=== PATIENT | female | born 1955 | race Caucasian/White ===

== ENCOUNTER 2021-10-25 13:06 | Outpatient (REF) | payer MEDICARE, SELFPAY ==
--- NOTE | 2021-10-25 13:00 | EEG_ITS ---
The waking background activity consists of a moderate voltage 9 to 10 Hertz posterior alpha frequency, intermixed with low voltage fast frequencies anteriorly. Drowsiness is characterized by diffuse theta slowing. Symmetrical frontal central sleep spindles, vertex sharp waves and K complexes appear. Delta sleep is noted at times. Arousals are frequent and unremarkable. The patient remains asymptomatic. No focal, lateralizing, or paroxysmal discharges was seen. IMPRESSION: This 24-hour ambulatory EEG is within normal limits. MD HARDIK Thurston/[facility] / [phone]
== END 2021-10-25 13:07 | disposition home or self-care (01) ==
LOC: HO.NEURO 13:06
PROVIDERS: PCP Internal Medicine; Visit Provider Psychiatry & Neurology Neurology
DX: G40.909 Epilepsy, unspecified, not intractable, without status epilepticus (principal)
CPT/HCPCS: 95708; 95957

== ENCOUNTER 2021-12-12 12:57 | Outpatient (REF) | payer MEDICARE, SELFPAY ==
--- NOTE | ~2021-12-12 | CT_ITS ---
EXAMINATION: CT HEAD WITHOUT CONTRAST CLINICAL INFORMATION: Seizures. COMPARISON: None TECHNIQUE: Contiguous axial imaging was performed from the skull base to vertex without intravenous administration of contrast. This CT examination was performed using dose optimization techniques as appropriate, variously including the following: *Automated exposure control *Adjustment of mA and/or kV according to patient size (this includes techniques or standardized protocols for targeted exams where dose is matched to indication/reason for exam; i.e. extremities or head) *Use of iterative reconstruction technique DLP: 864 mGy-cm FINDINGS: There is no evidence of acute intracranial hemorrhage or territorial infarction. No abnormal mass effect or midline shift is seen. Lange to white matter differentiation is well preserved. No extra-axial fluid collections are identified. The lateral ventricles are slightly asymmetrical but mildly prominent. The cortical sulci are unremarkable. The osseous structures and soft tissues are normal. There is mild mucoperiosteal thickening in the right inferior mastoid sinus. The left mastoid sinus and rest of the paranasal sinuses are well aerated. CT/CT head/brain wo con IMPRESSION: No acute intracranial process seen. Mild asymmetric prominent right lateral ventricle.
== END 2021-12-12 12:58 | disposition home or self-care (01) ==
LOC: HO.CT 12:57
PROVIDERS: PCP Internal Medicine; Visit Provider Psychiatry & Neurology Neurology
DX: G40.909 Epilepsy, unspecified, not intractable, without status epilepticus (principal)
CPT/HCPCS: 70450

== ENCOUNTER 2022-06-27 09:00 | Outpatient (REF) | payer MEDICARE, SELFPAY ==
[2022-06-27 10:48] LABS: MANUAL DIFF FLAG NO
[2022-06-27 10:53] LABS: Basophils Absolute Auto 0.1 X10*3/uL (0.0-0.2); Eosinophils Absolute Auto 0.2 X10*3/uL (0.0-0.4); Eosinophils Percent Auto 2.9 % (0-4); Hematocrit 39.2 % (37.0-47.0); Hemoglobin 12.9 g/dl (12.0-16.0); Imm Gran Abs Auto 0.02 X10*3/uL (0.00-0.03); Imm Gran Pct Auto 0.3 % (0.0-0.4); Lymphocytes Absolute Auto 2.5 X10*3/uL (1.2-4.9); Lymphocytes Percent Auto 34.2 % (20-40); Mean Corpuscular HGB Conc 32.9 g/dl (31.0-35.0); Mean Corpuscular Hemoglobin 31.5 pg (27.0-33.0); Mean Corpuscular Volume 95.6 fL (80.0-98.0); Mean Platelet Volume 9.3 fL (9.4-12.3); Monocytes Absolute Auto 0.7 X10*3/uL (0.1-1.2); Monocytes Percent Auto 10.2 % (2-11); Neutrophils Absolute Auto 3.8 x10*3/uL (2.0-8.3); Neutrophils Percent Auto 51.4 % (45-73); Platelet Count 386 X10*3/uL (160-400); White Blood Count 7.3 X10*3/uL (4.8-10.8)
[2022-06-27 11:08] LABS: Alanine Aminotransferase 18 U/L (0-31); Albumin Level 4.5 g/dL (3.5-5.0); Alkaline Phosphatase 65 U/L (39-117); Anion Gap 18 (12-20); Aspartate Amino Transferase 19 U/L (5-31); Bilirubin Total 0.3 mg/dL (0.0-1.0); Blood Urea Nitrogen 25 mg/dL (9-16); Carbon Dioxide 24 mmol/L (22-29); Chloride 102 mmol/L (96-108); Cholesterol 330 mg/dL; Estimated Glomerular Filt Rate > 60; Glucose Random 103 mg/dL (60-115); HDL Cholesterol 70 mg/dL; LDL Cholesterol Calculated 231 mg/dl; Potassium 5.3 mmol/L (3.3-5.1); Sodium 139 mmol/L (135-145); Total Protein 7.9 g/dL (6.5-8.0); Triglycerides 145 mg/dL
[2022-06-27 11:28] LABS: Free T4 (Free Thyroxine) 1.19 ng/dL (0.71-1.85); Thyroid Stimulating Hormone 1.11 uIU/mL (0.32-4.0); Vitamin D 25-OH Total 24.4 ng/mL (>30)
[2022-06-27 11:37] LABS: Erythrocyte Sedimentation Rate 38 MM/HR (0-20)
[2022-06-27 12:32] LABS: Vitamin B12 246 pg/mL (200-900)
== END 2022-06-27 09:01 | disposition home or self-care (01) ==
LOC: HO.10HDL 09:00
PROVIDERS: Visit Provider Internal Medicine
DX: I10 Essential (primary) hypertension (principal); E78.00 Pure hypercholesterolemia, unspecified
CPT/HCPCS: 36415; 80053; 80061; 82306; 82607; 82746; 84439; 84443; 85025; 85652

== ENCOUNTER 2022-07-14 12:41 | Outpatient (REF) | payer MEDICARE, SELFPAY ==
--- NOTE | ~2022-07-14 | MM_ITS ---
EXAMINATION: MM SCREENING DIGITAL BREAST TOMOSYNTHESIS, BILATERAL CLINICAL INFORMATION: Screening. Asymptomatic. Prior outside mammography over 15 years ago and no longer available. The lifetime risk of breast cancer based on the Tyrer-Cuzick Model is 9%. COMPARISON: None (current study represents new baseline exam). TECHNIQUE: Digital breast tomosynthesis is performed in both the craniocaudal and mediolateral oblique views along with computer-aided detection (CAD). Synthesized 2D images are generated from the tomosynthesis. Additional exaggerated right CC view is provided. FINDINGS: The breasts are heterogeneously dense, which may obscure small masses (ACR BI-RADS breast composition Category c). There is fine fibronodular parenchymal pattern. There is no dominant nodule, significant mass, or architectural abnormality. The axilla and skin contours are unremarkable. There are scattered benign appearing round calcifications in each breast. Loosely grouped calcifications are present posterior central 12:00 right breast. As this represents new baseline, patient will be recalled to fully characterize with right magnification views. MM/MM tomosynthesis screening BI IMPRESSION: Right: -Loosely grouped benign-appearing round calcifications posterior central 12:00 on new baseline. Left: -No mammographic evidence of malignancy. ASSESSMENT: BI-RADS 0: Incomplete - Need Additional Imaging Evaluation RECOMMENDATION: 1. Additional views of the right breast (magnification CC, magnification ML). 2. Radiology department staff will contact the patient for additional imaging. This patient's information was entered into a reminder system with a target due date for their next mammogram.
== END 2022-07-14 12:42 | disposition home or self-care (01) ==
LOC: HO.MAMMO 12:41
PROVIDERS: Visit Provider Internal Medicine
DX: Z12.31 Encounter for screening mammogram for malignant neoplasm of breast (principal)
CPT/HCPCS: 77063; 77067

== ENCOUNTER 2022-08-09 14:20 | Outpatient (REF) | payer MEDICARE, SELFPAY ==
--- NOTE | ~2022-08-09 | MM_ITS ---
EXAMINATION: MM DIAGNOSTIC DIGITAL MAMMOGRAPHY, RIGHT CLINICAL INFORMATION: Recall from new baseline screening for loosely grouped calcifications posterior central 12:00 right breast. TC score 9%. COMPARISON: Mammography: 07/14/2022 (new baseline) TECHNIQUE: Digital mammography is performed in the following views: Magnification right CC, magnification right ML. FINDINGS: The breasts are heterogeneously dense, which may obscure small masses (ACR BI-RADS breast composition Category c). The additional magnification views demonstrate loosely grouped round calcifications central 12:30 o'clock right breast 6-12 in number which vary in size. Chronicity is unknown. This may represent fibroadenomatous change. Short interval follow-up right mammography to include magnification views is recommended. Results are discussed with the patient at time of visit. MM/MM added views RT IMPRESSION: Probable benign calcifications central 12:30 o'clock right breast. ASSESSMENT: BI-RADS 3: Probably Benign RECOMMENDATION: Diagnostic right mammography in 6 months. This patient's information was entered into a reminder system with a target due date for their next mammogram.
== END 2022-08-09 14:21 | disposition home or self-care (01) ==
LOC: HO.MAMMO 14:20
PROVIDERS: PCP Internal Medicine; Visit Provider Internal Medicine
DX: R92.1 Mammographic calcification found on diagnostic imaging of breast (principal)
CPT/HCPCS: 77065

== ENCOUNTER → 2022-08-15 08:55 | Outpatient (BNVA) | payer MEDICARE, SELFPAY | PROVIDERS: PCP Internal Medicine; Visit Provider Nurse Practitioner Family | DX: Z12.11 Encounter for screening for malignant neoplasm of colon (principal) | CPT/HCPCS: 99202 ==

== ENCOUNTER 2022-10-10 08:35 | Outpatient (REF) | payer MEDICARE, SELFPAY ==
[2022-10-10 11:44] LABS: Alanine Aminotransferase 13 U/L (0-31); Albumin Level 4.3 g/dL (3.5-5.0); Alkaline Phosphatase 69 U/L (39-117); Anion Gap 16 (12-20); Aspartate Amino Transferase 17 U/L (5-31); Bilirubin Direct 0.2 mg/dL (0.0-0.5); Bilirubin Total 0.5 mg/dL (0.0-1.0); Blood Urea Nitrogen 19 mg/dL (9-16); Calcium 10.1 mg/dL (8.4-10.2); Carbon Dioxide 33 mmol/L (22-29); Chloride 95 mmol/L (96-108); Estimated Glomerular Filt Rate 53; Glucose Random 99 mg/dL (60-115); Potassium 4.2 mmol/L (3.3-5.1); Sodium 140 mmol/L (135-145); Total Protein 7.7 g/dL (6.5-8.0)
[2022-10-10 11:59] LABS: Estimated Average Glucose 105 mg/dL; Hemoglobin A1c % 5.3 %
== END 2022-10-10 08:36 | disposition home or self-care (01) ==
LOC: HO.10HDL 08:35
PROVIDERS: Visit Provider Internal Medicine
DX: E78.00 Pure hypercholesterolemia, unspecified (principal); R79.89 Other specified abnormal findings of blood chemistry
CPT/HCPCS: 36415; 80053; 82248; 83036

== ENCOUNTER 2022-10-31 11:01 | Outpatient (REF) | payer MEDICARE, SELFPAY ==
--- NOTE | ~2022-10-31 | XR_ITS ---
EXAMINATION: XR CHEST CLINICAL INFORMATION: Tobacco use COMPARISON: None TECHNIQUE: 2 views of the chest were obtained. FINDINGS: The cardiac and mediastinal contours are normal. The lungs are clear. No pleural effusion or pneumothorax. Degenerative changes of the spine. XR/XR chest 2V IMPRESSION: No evidence for acute disease in the chest.
== END 2022-10-31 11:02 | disposition home or self-care (01) ==
LOC: HO.XRAY 11:01
PROVIDERS: PCP Internal Medicine; Visit Provider Internal Medicine
DX: Z72.0 Tobacco use (principal)
CPT/HCPCS: 71046

== ENCOUNTER 2022-12-15 14:29 | Outpatient (REF) | payer OTHER, SELFPAY ==
--- NOTE | ~2022-12-15 | CT_ITS ---
EXAMINATION: CT CHEST SCREENING CLINICAL INFORMATION: Nicotine dependence. COMPARISON: Chest x-ray 10/31/2022 TECHNIQUE: Multidetector volumetric CT imaging of the chest is performed without contrast using low dose technique. Additional 2D coronal and sagittal reformatted images and axial 3D maximum intensity projection (MIP) images are generated on the CT workstation. This CT examination was performed using dose optimization techniques as appropriate, variously including the following: *Automated exposure control *Adjustment of mA and/or kV according to patient size (this includes techniques or standardized protocols for targeted exams where dose is matched to indication/reason for exam; i.e. extremities or head) *Use of iterative reconstruction technique DLP: 42 mGy-cm FINDINGS: LUNGS: The lungs are well-expanded and clear of acute pneumonic process. There are no pulmonary nodules, mass or consolidation. There is a 3 mm nodule along the right minor fissure axial image 240/6,. No additional nodules, mass or consolidation seen. No groundglass density or atelectasis. MEDIASTINUM: The thyroid lobes are symmetrical and normal. The central trachea and the bronchi are widely patent. Heart size and the great vessels are normal caliber. No pericardial effusion seen. Central trachea and the bronchi are widely patent. There is a small hiatal hernia CORONARY ARTERY CALCIFICATION: Trace coronary artery calcifications are present. PLEURA: Mild bilateral apical pleural thickening seen. No pleural calcification or effusion seen. AXILLA: No lymphadenopathy. UPPER ABDOMEN: Visualized liver, spleen, pancreas is normal. OSSEOUS STRUCTURES: Bone windows reveal no aggressive lytic or sclerotic process. There is mild spondylosis dorsal spine. CT/CT lung screening IMPRESSION: 3 mm nodule along the right minor fissure. ASSESSMENT: Lung-RADS category 2: Benign RECOMMENDATION: Low-dose annual CT chest
== END 2022-12-15 14:30 | disposition home or self-care (01) ==
LOC: HO.CT 14:29
PROVIDERS: PCP Internal Medicine; Visit Provider Physician Assistant Medical
DX: Z12.2 Encounter for screening for malignant neoplasm of respiratory organs (principal); F17.210 Nicotine dependence, cigarettes, uncomplicated
CPT/HCPCS: 71271; G0296

== ENCOUNTER 2023-01-18 08:20 | Outpatient (REF) | payer OTHER, SELFPAY ==
[2023-01-18 11:12] LABS: Cholesterol 266 mg/dL; HDL Cholesterol 61 mg/dL; LDL Cholesterol Calculated 182 mg/dl; Triglycerides 115 mg/dL
== END 2023-01-18 08:21 | disposition home or self-care (01) ==
LOC: HO.10HDL 08:20
PROVIDERS: Visit Provider Internal Medicine
DX: E78.00 Pure hypercholesterolemia, unspecified (principal)
CPT/HCPCS: 36415; 80061

== ENCOUNTER 2023-02-06 14:51 | Outpatient (REF) | payer OTHER, SELFPAY ==
--- NOTE | ~2023-02-06 | MM_ITS ---
EXAMINATION: MM DIAGNOSTIC DIGITAL BREAST TOMOSYNTHESIS, RIGHT CLINICAL INFORMATION: Short interval six-month follow-up calcifications posterior central 12:00 right breast, initially noted at new baseline mammography. TC score 9%. COMPARISON: Mammography: 08/09/2022, 07/14/2022 (new baseline) TECHNIQUE: Digital breast tomosynthesis is performed in both the craniocaudal and mediolateral oblique views along with computer-aided detection (CAD). Synthesized 2D images are generated from the tomosynthesis. Additional magnification right CC and magnification right ML views are obtained. FINDINGS: The breasts are heterogeneously dense, which may obscure small masses (ACR BI-RADS breast composition Category c). There is fine fibronodular parenchymal pattern similar to new baseline exam. No developing density or interval mass or architectural abnormality. The axilla and skin contours are unremarkable. Calcifications for follow-up posterior 12:00 position demonstrate loosely grouped coarse calcifications but also new very fine punctate foci not clearly appreciated on prior magnification views. Results are discussed with the patient at time of visit. Stereotactic sampling is recommended to confirm benignity. Patient is in agreement. MM/MM tomosynthesis diagnostic RT IMPRESSION: There are some new very fine punctate calcifications in the area for follow-up since prior diagnostic exam. ASSESSMENT: BI-RADS 4: Suspicious RECOMMENDATION: Stereotactic sampling right breast calcifications. This patient's information was entered into a reminder system with a target due date for their next mammogram.
== END 2023-02-06 14:52 | disposition home or self-care (01) ==
LOC: HO.MAMMO 14:51
PROVIDERS: PCP Internal Medicine; Visit Provider Internal Medicine
DX: R92.1 Mammographic calcification found on diagnostic imaging of breast (principal)
CPT/HCPCS: 77061; 77065

== ENCOUNTER 2023-02-12 08:59 | Outpatient (REF) | payer OTHER, SELFPAY ==
--- NOTE | ~2023-02-12 | MM_ITS ---
EXAMINATION: STEREOTACTIC TARGETING BREAST, RIGHT CLINICAL INFORMATION: Right breast calcifications for stereotactic biopsy. COMPARISON: Mammography 02/06/2023, 08/09/2022, 07/14/2022 (new baseline) . TECHNIQUE/PROCEDURE: Informed consent was obtained from the patient after discussion of the benefits, risks, and alternatives to biopsy today. Patient appeared to understand. Gave opportunity for questions. Patient signed consent form. BIOPSY TABLE: [employer] Biopsy System. LESION: Coarse and fine calcifications upper right breast. TARGETING: Digital breast tomosynthesis used for targeting in the CC view. COMMENT: Patient coughing during the procedure with subsequent breast movement out of position. It was mutually decided to abort the procedure. No anesthesia or dermatotomy performed, only targeting. Patient will be rescheduled for another date for tissue sampling under stereotactic guidance. Dr. Frye's office notified by [facility]. MM/MM stereotactic biopsy RT IMPRESSION: -Procedure aborted due to patient motion related to coughing. -Stereotactic sampling to be rescheduled.
== END 2023-02-12 09:00 | disposition home or self-care (01) ==
LOC: HO.MAMMO 08:59
PROVIDERS: Visit Provider Surgery
DX: R92.0 Mammographic microcalcification found on diagnostic imaging of breast (principal); Z79.899 Other long term (current) drug therapy
CPT/HCPCS: 19081; 99202

== ENCOUNTER 2023-03-26 10:02 | Outpatient (REF) | payer OTHER, SELFPAY ==
--- NOTE | ~2023-03-26 | MM_ITS ---
EXAMINATION: STEREOTACTIC TOMOSYNTHESIS-GUIDED VACUUM-ASSISTED BREAST BIOPSY, RIGHT SPECIMEN RADIOGRAPH, RIGHT POST PROCEDURE DIGITAL MAMMOGRAM, RIGHT CLINICAL INFORMATION: Right breast calcifications for tissue sampling posterior central 12:00. COMPARISON: Mammography 02/06/2023, 08/09/2022, 07/14/2022 (new baseline). TECHNIQUE/PROCEDURE: Informed consent was obtained from the patient after discussion of the benefits, risks, and alternatives to biopsy today. Patient appeared to understand. Gave opportunity for questions. Patient signed consent form. BIOPSY TABLE: [employer]one Biopsy System. LESION: Loosely grouped calcifications, possibly fibroadenomatous. LOCAL ANESTHESIA: 10 mL carbonated 1% lidocaine; 10 mL 1% lidocaine with epinephrine. DERMATOTOMY: Single skin monica dermatotomy performed. NEEDLE: [employer] 9-gauge vacuum assisted core biopsy device. APPROACH: Craniocaudal. TARGETING: Combination of digital breast tomosynthesis and stereotactic digital mammography used for targeting. CORES: 8. CLIP: [email or web address] T-shaped marker. SPECIMEN RADIOGRAPH: Specimen radiograph is taken in separate room using digital mammography. The index calcifications are in the excised cores. There are at least 8 calcifications of varying size in the cores. POST PROCEDURE UNILATERAL DIGITAL MAMMOGRAM: The post biopsy mammogram is performed in separate room using separate digital mammography equipment from the biopsy procedure. CC and ML views are obtained. The breasts are heterogeneously dense, which may obscure small masses (breast composition category: c). The clip marker is in position. The calcifications are decreased at the biopsy site. No gross hematoma. The patient tolerated the procedure well. No immediate complications. Home instructions reviewed with the patient. Final pathology results are pending. MM/MM stereotactic biopsy RT IMPRESSION: 1. Digital tomosynthesis-guided core biopsy right breast with clip placement. 2. Specimen radiograph taken and post procedure mammogram. There is satisfactory positioning of the biopsy clip. 3. Final pathology results pending. An addendum report will be issued.
[2023-03-26] MEDS: Lidocaine HCl 1 % 20 ML VIAL 10 ML SUBCUT (11:27)
[2023-03-26] MEDS: Sodium Bicarbonate 8.4% 50 MEQ/50 ML VIAL SUBCUT (11:28)
[2023-03-26] MEDS: Lidocaine HCl 1%/Epi 1:100,000 10 ML VIAL SUBCUT (11:31)
== END 2023-03-26 10:03 | disposition home or self-care (01) ==
LOC: HO.MAMMO 10:02
PROVIDERS: PCP Internal Medicine; Visit Provider Surgery
DX: R92.0 Mammographic microcalcification found on diagnostic imaging of breast (principal)
CPT/HCPCS: 19081; 88305; A4648

== ENCOUNTER → 2023-04-02 09:55 | Outpatient (BNVA) | payer OTHER, SELFPAY | PROVIDERS: PCP Internal Medicine; Referring Provider Internal Medicine; Visit Provider Surgery | DX: R92.0 Mammographic microcalcification found on diagnostic imaging of breast (principal) | CPT/HCPCS: 99212 ==

== ENCOUNTER 2023-07-03 15:21 | Outpatient (REF) | payer OTHER, SELFPAY | END 2023-07-03 15:22 | disposition home or self-care (01) | LOC: HO.RESP 15:21 | PROVIDERS: PCP Internal Medicine; Visit Provider Nurse Practitioner Family | DX: R05.9 Cough, unspecified (principal) | CPT/HCPCS: 94010; 94727; 94729 ==

== ENCOUNTER 2023-09-25 13:27 | Outpatient (REF) | payer OTHER, SELFPAY ==
--- NOTE | ~2023-09-25 | MM_ITS ---
EXAMINATION: MM SCREENING DIGITAL BREAST TOMOSYNTHESIS, BILATERAL CLINICAL INFORMATION: Screening. Asymptomatic. COMPARISON: Mammography: This study is compared with prior exams dating back to 2021. TECHNIQUE: Digital breast tomosynthesis is performed in both the craniocaudal and mediolateral oblique views along with computer-aided detection (CAD). Synthesized 2D images are generated from the tomosynthesis. FINDINGS: The breasts are heterogeneously dense, which may obscure small masses (ACR BI-RADS breast composition Category c). There are no significant masses, abnormal calcifications, or other abnormalities. There is a tissue marker present in the upper inner quadrant of the right breast from prior benign percutaneous biopsy. Few, benign calcifications are present in each breast. MM/MM tomosynthesis screening BI IMPRESSION: No mammographic evidence of malignancy. ASSESSMENT: BI-RADS BI-RADS 2 - Benign Findings RECOMMENDATION: Routine annual mammography screening. 1 year F/U This examination should not preclude the clinical evaluation of a suspicious palpable abnormality. This patient's information was entered into a reminder system with a target due date for their next mammogram.
== END 2023-09-25 13:28 | disposition home or self-care (01) ==
LOC: HO.MAMMO 13:27
PROVIDERS: Visit Provider Surgery
DX: Z12.31 Encounter for screening mammogram for malignant neoplasm of breast (principal)
CPT/HCPCS: 77063; 77067

== ENCOUNTER → 2023-09-25 13:30 | Outpatient (BNV) | payer OTHER, SELFPAY | PROVIDERS: Visit Provider Radiology Diagnostic Radiology | DX: Z12.31 Encounter for screening mammogram for malignant neoplasm of breast (principal) | CPT/HCPCS: 77063; 77067 ==

== ENCOUNTER 2024-07-28 11:28 | Outpatient (AMB) | payer OTHER, SELFPAY ==
[2024-07-28 11:31] VITALS: BP 114/70; PULSE 102; O2SAT 92; BMI 25.6
--- NOTE | 2024-07-28 11:31 | A.OFFPC_ITS ---
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 Accompanied by: Self / Same As Patient Allergies phenytoin [From Dilantin] Allergy (Severe, Verified 07/28/24 11:31) Rash Medication List - Last Reconciled 07/28/24 by Harriet Long MD atorvastatin 10 mg PO DAILY bisacodyl (Dulcolax (bisacodyl)) 10 mg (2 x 5 mg) PO ONCE 1 day cholecalciferol (vitamin D3) 50 mcg PO DAILY 90 days cyanocobalamin (vitamin B-12) 1,000 mcg PO DAILY lisinopril 20 mg PO DAILY 90 days Tobacco use date assessed: 07/28/24 Fall risk assessment: No Falls in past year Last assessed Fall Risk: 07/28/24 Dental Screening Dental Screen Date: 07/28/24 Did you have a dental visit in the last 12 months?: No Did you have a dental problem in the last 6 months where you did not have access to dental care?: No Was dental information given to patient?: Patient declined HPI PE HPI Details 69-YEAR-OLD female smoker with hypertens ion hypercholesterolemia coming in for physical exam last seen in 02/05/2023. is suppose to be \enrolled in the Lung cancer screening program - reminded about Ct scan request. colon cancer screeing patient declined pneumonia shot [facility] Medical History Cough GERD (gastroesophageal reflux disease) Head trauma History of basal cell carcinoma History of seizure Hypercholesterolemia Hypertension Impaired fasting blood sugar Nicotine dependence, cigarettes, uncomplicated Surgical History History of basal cell carcinoma (BCC) excision Family History Mother No problems noted. Father No problems noted. Brother No problems noted. Brother Bipolar 1 disorder Sister No problems noted. Sister No problems noted. Sister No problems noted. Brother Heart attack Brother AIDS Maternal Grandmother Pancreatic cancer Breast cancer Paternal Aunt No problems noted. Paternal Aunt Breast cancer Social History (Updated 07/28/24 @ 12:06 by Harriet Long MD) Housing: Other Alcohol intake: current Alcohol intake frequency: a few times a week Comment: 2 x a month 1-2 drinks Patient Tobacco Use Status: Former Tobacco user Tobacco use type: Cigarette Cigarettes Per Day: 5 Years Smoked: (onset 20yo, 1ppd x 47yrs, now 1/4ppd - 40PYH)- quit 02/2024 on patch e-Cigarette/Vaping Use: Never Used Second Hand Smoke Exposure: No Current occupational status: retired Cognitive needs: No Hearing needs: No Vision needs: Yes Questionnaire PHQ-9 Over the last 2 weeks, how often have you been bothered by any of the following problems? 1. Little interest or pleasure in doing things: not at all 2. Feeling down, depressed, or hopeless: not at all 4. Feeling tired or having little energy: not at all 6. Feeling bad about yourself - or that you are a failure or have let yourself or your family down: not at all 7. Trouble concentrating on things, such as reading the newspaper or watching television: not at all 8. Moving or speaking so slowly that other people could have noticed. Or the opposite - being so fidgety or restless that you have been moving around a lot more than usual: not at all 9. Thoughts that you would be better off or of hurting yourself in some way: not at all Source: Developed by Drs. Melvin Mcfarland, Kristin Lee, Carlos Atkinson and colleagues, with an educational bonita from [employer]. Thrive Questionnaire Date Thrive assessed: 02/15/23 I am a: Patient What is your living situation today?: I have a steady place to live Within the past 12 months, did the food you bought not last and you didn't have the money to get more?: Never true Within the past 12 months, did you worry whether your food would run out before you got money to buy more?: Never true Do you have trouble paying for medicines?: No Do you have trouble getting transportation to medical appointments?: No Do you have trouble paying your heating and electricity bill?: No Do you have trouble taking care of your child, family member or friend?: No Do you have trouble with day-to-day activities such as bathing, preparing meals, shopping, managing finances, etc.?: No Are you currently unemployed and looking for a job?: I choose not to answer this question Are you interested in more education?: No Please select the resources that you would like help with: None Currently or been in a relationship where the following occur: No concerns reported THRIVE Score: 0 AUDIT C Alcohol Use Questionnaire (AUDIT-C) 1. How often do you have a drink containing alcohol?: Monthly or less 2. How many drinks containing alcohol do you have on a typical day when you are drinking?: 1 or 2 3. How often do you have six or more drinks on one occasion?: Never Total Score: 1 ALEXANDRA-7 AMB Questionnaire ALEXANDRA-7 Date ALEXANDRA - 7 assessed: 02/15/23 Feeling nervous, anxious, or on edge: 0 = Not at all Not being able to stop or control worryin = Not at all Worrying too much about different things: 0 = Not at all Trouble relaxin = Not at all Being so restless that it is hard to sit still: 0 = Not at all Becoming easily annoyed or irritable: 0 = Not at all Feeling afraid as if something awful might happen: 0 = Not at all Total ALEXANDRA-7 score (0-4 normal; 5-9 mild; 10-14 moderate; 15-21 severe): 0 Source: Developed by Drs. Melvin Mcfarland, Kristin Lee, Carlos Atkinson and colleagues, with an educational bonita from [employer]. Review of Systems Const Denies poor appetite and Denies weakness Eyes Denies no additional complaints ENT Reports Normal hearing present, Denies dizziness, Denies nasal congestion, Denies tinnitus and Denies sore throat Card Denies chest pain, Denies syncope, Denies rapid heart rate and Denies dyspnea Resp Denies cough and Denies dyspnea GI Denies change in stool character, Reports constipation, Denies diarrhea, Denies nausea and Denies vomiting Denies urinary frequency, Denies difficulty voiding and Denies dysuria Neuro Reports Normal hearing present, Denies confusion, Denies dizziness, Denies syncope and Denies weakness Psych Denies confusion Physical exam (Primary Care) Vital Signs: Last Vital Signs Pulse 102 H 09/09/24 11:31 BP 114/70 07/28/24 11:31 Pulse Ox 92 07/28/24 11:31 Oxygen Delivery Method Room Air 07/28/24 11:31 BMI result Body Mass Index 25.6 Tobacco/Smoking Status: Tobacco use Status Tobacco use date assessed 07/28/24 07/28/24 11:36 Patient Tobacco Use Status Former Tobacco user 07/28/24 11:36 Tobacco use type Cigarette 07/28/24 11:31 e-Cigarette/Vaping Use Never Used 07/28/24 11:31 Thrive Assessment: Date of Thrive Assessment Date Thrive assessed 02/15/23 07/28/24 11:31 Currently or been in a relationship where the following occur: No concerns reported Const General: alert and awake; No confusion Orientation/consciousness: No confusion HENMT Head: Yes normocephalic Ears: external ears normal and TM's normal bilaterally Face and sinus: Yes normal facial exam Mouth: moist mucous membranes Throat: Yes tonsils normal Eyes Conjunctivae: conjunctivae normal Pupils: Equal, round and reactive pupils present and Pupil accommodation reflex normal Direct Ophthalmoscopy: normal light reflex Neck Neck: No lymphadenopathy Thyroid: Thyroid normal Chest Chest palpation & inspection: normal inspection of the chest Resp Effort & Inspection: audible wheezes Auscultation: no crackles, wheezes and lung sounds not diminished Cardio Rate: regular rate Rhythm: regular rhythm Peripheral pulses: radial pulses present and dorsalis pedis present GI Palpation (GI): no masses Auscultation: normal bowel sounds and normoactive bowel sounds Rectal Exam - Female: deferred Skin General skin exam: no rashes or lesions noted Rashes: no rashes Neuro General: deep tendon reflexes 2+ bilaterally and No confusion Cranial nerves: Yes Equal, round and reactive pupils present, Yes Midline tongue present, Yes Normal hearing present and Yes Ability to bilaterally elevate shoulders present Cognition (Neuro): normal cognition Gait exam (Neuro): Normal gait present Motor exam (neuro): 5/5 motor strength present throughout Deep tendon reflexes (DTR's): Right brachioradialis reflex intensity grade: 2+, Left brachioradialis reflex intensity grade: 2+, Right patellar reflex intensity grade: 2+ and Left patellar reflex intensity grade: 2+ Extrem General: No edema Assessment and Plan Assessment & Plan (1) Annual physical exam: Code(s): Z00.00 - Encounter for general adult medical examination without abnormal findings Plan: Patient is advised to eat healthy, keep well hydrated, keep active and have adequate sleep. (2) GERD (gastroesophageal reflux disease): Code(s): K21.9 - Gastro-esophageal reflux disease without esophagitis Plan: Avoid the foods that causes that usually spicy foods, tomato products, juices, coffee, soda and foods that your sensitive to. After eating do not lie down, allow 3-4 hours before in lie down. And keep the head of bed above 30 degrees to avoid the acid from going up. (3) Impaired fasting blood sugar: Code(s): R73.01 - Impaired fasting glucose Plan: Decrease the amount of carbohydrate intake, pasta, bread, rice and potatoes are all sugar and that is aside from all the sweet stuff, remember that fruits are good but they are Sweet also. (4) Hypercholesterolemia: Code(s): E78.00 - Pure hypercholesterolemia, unspecified Plan: Avoid fried foods, chicken skin, eggs, butter margarine, pastries and meat. Be it pork or beef they have a lot of cholesterol LDL goal of less than 130 and triglyceride of less than 150. Patient on atorvastatin needs to have blood work (5) Hypertension: Code(s): I10 - Essential (primary) hypertension Plan: Continue with blood pressure medication. Decrease salt intake and exercise on lisinopril 20 mg once a day (6) Nicotine dependence, cigarettes, uncomplicated: Comment: (current smoker - onset 20yo, 1ppd x 47yrs, now 1/4ppd - 40PYH) QUIT 02/2024 Code(s): F17.210 - Nicotine dependence, cigarettes, uncomplicated Plan: Discussed about stopping smoking and lung cancer screening program (7) Pulmonary nodule: Comment: November 2022 Code(s): R91.1 - Solitary pulmonary nodule Plan: Discussed about lung cancer screening program (8) Colon cancer screening: Code(s): Z12.11 - Encounter for screening for malignant neoplasm of colon (9) Colon cancer screening: Code(s): Z12.11 - Encounter for screening for malignant neoplasm of colon (10) COPD (chronic obstructive pulmonary disease): Code(s): J44.9 - Chronic obstructive pulmonary disease, unspecified Orders: Orders Comprehensive Met. Panel 3 Months R7. - Impaired fasting glucose Complete Blood Count Auto Diff 3 Months R73.01 - Impaired fasting glucose Vitamin D 25-OH Total 3 Months R73.01 - Impaired fasting glucose Hemoglobin A1c 3 Months R73.01 - Impaired fasting glucose Lipid Panel 3 Months E78.00 - Pure hypercholesterolemia, unspecified, R73.01 - Impaired fasting glucose Thyroid Stimulating Hormone 3 Months R73.01 - Impaired fasting glucose Vitamin B12 and Folate 3 Months R73.01 - Impaired fasting glucose Free T4 (Free Thyroxine) 3 Months R73.01 - Impaired fasting glucose Referrals Gastroenterology Referral Z12.11 - Encounter for screening for malignant neoplasm of colon Medications: New albuterol sulfate 90 mcg/actuation (Ventolin HFA) 2 puffs inhalation Q6H PRN 8.5 grams 0RF shortness of breath or wheezing J44.9 - Chronic obstructive pulmonary disease, unspecified Refilled lisinopril 20 mg PO DAILY 90 days 90 tabs 1RF Z12.11 - Encounter for screening for malignant neoplasm of colon atorvastatin 10 mg PO DAILY 90 tabs 1RF E78.00 - Pure hypercholesterolemia, unspecified Coding Level of Care Code Est Pt Prev Care >65y(14776) Diagnoses Annual physical exam Z00.00 GERD (gastroesophageal reflux disease) K21.9 Impaired fasting blood sugar R73.01 Hypercholesterolemia E78.00 Hypertension I10 Nicotine dependence, cigarettes, uncomplicated F17.210 Pulmonary nodule R91.1 Colon cancer screening Z12.11 COPD (chronic obstructive pulmonary disease) J44.9
== END 2024-07-28 15:29 | disposition home or self-care (01) ==
PROVIDERS: Visit Provider Internal Medicine
DX: Z00.00 Encounter for general adult medical examination without abnormal findings (principal); K21.9 Gastro-esophageal reflux disease without esophagitis; R73.01 Impaired fasting glucose; J44.9 Chronic obstructive pulmonary disease, unspecified; E78.00 Pure hypercholesterolemia, unspecified; I10 Essential (primary) hypertension; F17.210 Nicotine dependence, cigarettes, uncomplicated; R91.1 Solitary pulmonary nodule; Z12.11 Encounter for screening for malignant neoplasm of colon
CPT/HCPCS: 99397

== ENCOUNTER 2025-06-30 15:23 | Outpatient (AMB) | payer MEDICARE, SELFPAY ==
--- NOTE | 2025-06-30 15:25 | MHC.PC.OV ---
Vital Signs 06/30/25 15:29 Height 5 ft 2 in Weight 153 lb 2 oz BMI 28.0 BP 140/70 H Blood Pressure Location Rt brachial Position Sitting Pulse 108 H Pulse Source Pulse Oximeter Temp 97.3 F Temp Source Temporal Artery Scan Pulse Oximetry (%) 96 Oxygen Delivery Method Room Air Intake Visit Reasons: Care F/U Intake Note: Patient is here to follow up on COPD, HTN, Cholesterol. Library Services Assistant Required: No Drill Press Tender: Not Required per policy Accompanied by: Self / Same As Patient Allergies phenytoin (From Dilantin) Allergy (Severe, Verified 06/30/25 15:26) Rash Tobacco use date assessed: 06/30/25 Fall risk assessment: No Falls in past year Last assessed Fall Risk: 06/30/25 Dental Screening Dental Screen Date: 06/30/25 Did you have a dental visit in the last 12 months?: No Did you have a dental problem in the last 6 months where you did not have access to dental care?: No Was dental information given to patient?: No (Dentures) [facility] Medical History (Updated 06/30/25 @ 15:41 by Harriet Long MD) Cough History of basal cell carcinoma Nicotine dependence, cigarettes, uncomplicated History of seizure Impaired fasting blood sugar Hypercholesterolemia GERD (gastroesophageal reflux disease) Head trauma Hypertension Surgical History History of basal cell carcinoma (BCC) excision Family History Mother No problems noted. Father No problems noted. Brother No problems noted. Brother Bipolar 1 disorder Sister No problems noted. Sister No problems noted. Sister No problems noted. Brother Heart attack Brother AIDS Maternal Grandmother Pancreatic cancer Breast cancer Paternal Aunt No problems noted. Paternal Aunt Breast cancer Social History (Updated 06/30/25 @ 15:33 by VANESSA Guzman) Housing: Other Alcohol intake: current Alcohol intake frequency: a few times a week Comment: 2 x a week 1-2 drinks Patient Tobacco Use Status: Current someday Tobacco user Tobacco use type: Cigarette Cigarette Packs Per Day: 0.25 Cigarettes Per Day: 2 Years Smoked: (onset 20yo, 1ppd x 47yrs, now 1/4ppd - 40PYH)- quit 02/2024 on patch e-Cigarette/Vaping Use: Never Used Second Hand Smoke Exposure: Yes Current occupational status: retired Cognitive needs: No Hearing needs: No Vision needs: Yes Questionnaire PHQ-9 Over the last 2 weeks, how often have you been bothered by any of the following problems? 1. Little interest or pleasure in doing things: more than half the days 2. Feeling down, depressed, or hopeless: not at all 3. Trouble falling or staying asleep, or sleeping too much: not at all 4. Feeling tired or having little energy: not at all 5. Poor appetite or overeating: not at all 6. Feeling bad about yourself - or that you are a failure or have let yourself or your family down: not at all 7. Trouble concentrating on things, such as reading the newspaper or watching television: not at all 8. Moving or speaking so slowly that other people could have noticed. Or the opposite - being so fidgety or restless that you have been moving around a lot more than usual: not at all 9. Thoughts that you would be better off or of hurting yourself in some way: not at all Total score: 2 Depression Screening Interpretation: Positive Depression Screening Done: Yes Source: Developed by Drs. Melvin Mcfarland, Kristin Lee, Carlos Atkinson and colleagues, with an educational bonita from [employer]. Thrive Questionnaire Date Thrive assessed: 06/30/25 I am a: Patient What is your living situation today?: I do not have a steady places to live I am temporarily staying with others Within the past 12 months, did the food you bought not last and you didn't have the money to get more?: Never true Within the past 12 months, did you worry whether your food would run out before you got money to buy more?: Never true Do you have trouble paying for medicines?: No Do you have trouble getting transportation to medical appointments?: No Do you have trouble paying your heating and electricity bill?: No Do you have trouble taking care of your child, family member or friend?: No Do you have trouble with day-to-day activities such as bathing, preparing meals, shopping, managing finances, etc.?: No Are you currently unemployed and looking for a job?: No Are you interested in more education?: No Please select the resources that you would like help with: None Currently or been in a relationship where the following occur: No concerns reported THRIVE Score: 1 AUDIT C Alcohol Use Questionnaire (AUDIT-C) 1. How often do you have a drink containing alcohol?: 2-3 times a week 2. How many drinks containing alcohol do you have on a typical day when you are drinking?: 1 or 2 3. How often do you have six or more drinks on one occasion?: Never Total Score: 3 ALEXANDRA-7 AMB Questionnaire ALEXANDRA-7 Date ALEXANDRA - 7 assessed: 06/30/25 Feeling nervous, anxious, or on edge: 0 = Not at all Not being able to stop or control worryin = Not at all Worrying too much about different things: 0 = Not at all Trouble relaxin = Not at all Being so restless that it is hard to sit still: 0 = Not at all Becoming easily annoyed or irritable: 0 = Not at all Feeling afraid as if something awful might happen: 0 = Not at all Total ALEXANDRA-7 score (0-4 normal; 5-9 mild; 10-14 moderate; 15-21 severe): 0 Source: Developed by Drs. Melvin Mcfarland, Kristin Lee, Carlos Atkinson and colleagues, with an educational bonita from [employer]. Physical exam (Primary Care) Vital Signs: Last Vital Signs Temp 97.3 F 06/30/25 15:29 Pulse 108 H 06/30/25 15:29 BP 140/70 H 06/30/25 15:29 Pulse Ox 96 06/30/25 15:29 Oxygen Delivery Method Room Air 06/30/25 15:29 BMI result Body Mass Index 28.0 Tobacco/Smoking Status: Tobacco use Status Tobacco use date assessed 06/30/25 06/30/25 15:35 Patient Tobacco Use Status Current someday Tobacco 06/30/25 15:35 Tobacco use type Cigarette 06/30/25 15:35 e-Cigarette/Vaping Use Never Used 06/30/25 15:35 PHQ-9: PHQ-9 Score PHQ-9: Total score 2 06/30/25 15:43 Depression Screening Interpretation: Positive Thrive Assessment: Date of Thrive Assessment Date Thrive assessed 06/30/25 06/30/25 15:35 Currently or been in a relationship where the following occur: No concerns reported Const General: alert; No acute distress Eyes Conjunctivae: conjunctivae normal Resp Auscultation: clear to auscultation bilaterally Cardio Rate: regular rate Rhythm: regular rhythm GI Inspection: Yes normal to inspection Extrem General: Yes normal to inspection and No edema Coding Level of Care Code Est Pt Level 4 (36941) Complex EM visit Add On G2211 Diagnoses Hypertension I10 Hypercholesterolemia E78.00 Impaired fasting blood sugar R73.01 Overweight (BMI 25.0-29.9) E66.3 GERD (gastroesophageal reflux disease) K21.9 Colon cancer screening Z12.11 COPD (chronic obstructive pulmonary disease) J44.9 Nicotine dependence, cigarettes, uncomplicated F17.210 Breast cancer screening by mammogram Z12.31 Assessment & Plan Assessment & Plan (1) Hypertension: Code(s): I10 - Essential (primary) hypertension Category: Medical Plan: Continue with blood pressure medication. Decrease salt intake and exercise patient on lisinopril 20 mg once a day (2) Hypercholesterolemia: Code(s): E78.00 - Pure hypercholesterolemia, unspecified Category: Medical Plan: Avoid fried foods, chicken skin, eggs, butter margarine, pastries and meat. Be it pork or beef they have a lot of cholesterol LDL goal of less than 130 and triglyceride of less than 150. On atorvastatin patient is reminded about the blood work (3) Impaired fasting blood sugar: Code(s): R73.01 - Impaired fasting glucose Category: Medical Plan: Decrease the amount of carbohydrate intake, pasta, bread, rice and potatoes are all sugar and that is aside from all the sweet stuff, remember that fruits are good but they are Sweet also. Reminded about blood work (4) Overweight (BMI 25.0-29.9): Code(s): E66.3 - Overweight Category: Medical Plan: Diet and exercise (5) GERD (gastroesophageal reflux disease): Code(s): K21.9 - Gastro-esophageal reflux disease without esophagitis Category: Medical Plan: Avoid the foods that causes that usually spicy foods, tomato products, juices, coffee, soda and foods that your sensitive to. After eating do not lie down, allow 3-4 hours before in lie down. And keep the head of bed above 30 degrees to avoid the acid from going up. Patient is advised to stop smoking! (6) Colon cancer screening: Code(s): Z12.11 - Encounter for screening for malignant neoplasm of colon Category: Medical Plan: Patient is reminded about colonoscopy (7) COPD (chronic obstructive pulmonary disease): Code(s): J44.9 - Chronic obstructive pulmonary disease, unspecified Category: Medical Plan: Patient is strongly advised to stop smoking! Patient on albuterol as needed (8) Nicotine dependence, cigarettes, uncomplicated: Comment: (current smoker - onset 20yo, 1ppd x 47yrs, now 1/4ppd - 40PYH) QUIT 02/2024 Code(s): F17.210 - Nicotine dependence, cigarettes, uncomplicated Category: Medical Plan: Patient is strongly advised to stop smoking! smoking a-2 a day (9) Breast cancer screening by mammogram: Code(s): Z12.31 - Encounter for screening mammogram for malignant neoplasm of breast Category: Medical Plan: Patient is reminded about mammogram Plan History of Present Illness The patient is a 69-year-old female presenting for a follow-up visit. She has a history of Gastroesophageal Reflux Disease (GERD), hypertension, hypercholesterolemia, and Chronic Obstructive Pulmonary Disease (COPD). Her last blood work was conducted in 2021, and she was last seen in July 2024. The patient reports a 13-pound weight gain since her last visit and acknowledges being overweight. She is a smoker, currently smoking one to two cigarettes a day, and expresses a desire to quit using nicotine patches. She was reminded about her mammogram, which was last done in January 2023, and her colonoscopy, which has not yet been completed despite being scheduled. The patient has been advised to stop smoking due to her COPD and overall health. Health Maintenance - Mammogram last conducted in January 2023, reminder given for follow-up. - Colonoscopy reminder provided, pending completion. - Smoking cessation advised, nicotine patches discussed. - Blood work reminder provided, fasting required. Social History - Tobacco use: Smokes one to two cigarettes daily, plans to quit using nicotine patches. - Weight management: Reports a 13-pound weight gain, acknowledges being overweight. - Family stress: Caring for parents, with recent of father and mother's cancer diagnosis. Review of Systems - General: Reports weight gain of 13 pounds. - Respiratory: Reports smoking one to two cigarettes daily. - Gastrointestinal: Denies recent colonoscopy despite being scheduled. Physical Exam Results - Labs: Last blood work conducted in 2021. - Imaging: Mammogram last done in January 2023. Plan The patient is advised to continue monitoring her blood pressure and cholesterol levels, with a reminder to complete her blood work, which requires fasting. She is encouraged to adhere to her medication regimen, including atorvastatin for hypercholesterolemia and lisinopril for hypertension. Smoking cessation is strongly advised, and the patient plans to use nicotine patches to aid in quitting. A follow-up on her mammogram and colonoscopy is necessary, with reminders provided for both screenings. The patient is also advised to maintain a healthy diet and exercise routine to address her weight gain and overall health. Patient was informed and verbally consented to the use of an ambient scribe for clinic note documentation during this visit. Discussion Notes During the visit, I discussed the importance of smoking cessation with the patient, emphasizing the health benefits and suggesting nicotine patches as an aid. We reviewed her need for regular screenings, including a mammogram and colonoscopy, and I provided reminders for these. I also advised her on the necessity of maintaining a healthy lifestyle, including diet and exercise, to manage her weight and overall health. Patient Instructions - Complete blood work as soon as possible, ensuring fasting for accurate results. - Continue taking atorvastatin and lisinopril as prescribed. - Use nicotine patches to help quit smoking, and reduce cigarette intake. - Schedule and attend follow-up appointments for mammogram and colonoscopy. - Maintain a balanced diet and regular exercise routine to manage weight. Orders: Orders MM tomosynthesis screening BI Today Z12.31 - Encounter for screening mammogram for malignant neoplasm of breast Referrals Lung Cancer Screening Referral - Nicotine dependence, cigarettes, uncomplicated Medications: New nicotine 1 patch transdermal DAILY 28 ea 0RF F17.210 - Nicotine dependence, cigarettes, uncomplicated Refilled atorvastatin 10 mg PO DAILY 90 tabs 1RF E78.00 - Pure hypercholesterolemia, unspecified lisinopril 20 mg PO DAILY 90 tabs 1RF 90 days Z12.11 - Encounter for screening for malignant neoplasm of colon
[2025-06-30 15:29] VITALS: BP 140/70; PULSE 108; TEMP 36.3; O2SAT 96; BMI 28.0
== END 2025-06-30 15:57 | disposition home or self-care (01) ==
LOC: HO.HMCH 15:24
PROVIDERS: PCP Internal Medicine; Visit Provider Internal Medicine
DX: I10 Essential (primary) hypertension (principal); J44.9 Chronic obstructive pulmonary disease, unspecified; Z68.28 Body mass index [BMI] 28.0-28.9, adult; E66.3 Overweight; E78.00 Pure hypercholesterolemia, unspecified; R73.01 Impaired fasting glucose; K21.9 Gastro-esophageal reflux disease without esophagitis; Z12.11 Encounter for screening for malignant neoplasm of colon; F17.210 Nicotine dependence, cigarettes, uncomplicated; Z12.31 Encounter for screening mammogram for malignant neoplasm of breast

== ENCOUNTER → 2025-06-30 15:23 | Outpatient (BNVA) | payer MEDICARE, SELFPAY | PROVIDERS: PCP Internal Medicine; Visit Provider Internal Medicine | DX: I10 Essential (primary) hypertension (principal); E78.00 Pure hypercholesterolemia, unspecified; R73.01 Impaired fasting glucose; E66.3 Overweight; Z68.28 Body mass index [BMI] 28.0-28.9, adult; K21.9 Gastro-esophageal reflux disease without esophagitis; J44.9 Chronic obstructive pulmonary disease, unspecified; F17.210 Nicotine dependence, cigarettes, uncomplicated; Z71.6 Tobacco abuse counseling; Z71.3 Dietary counseling and surveillance | CPT/HCPCS: 99212 ==